=== PATIENT | female | born 1970 | race Caucasian/White ===

== ENCOUNTER 2020-04-04 07:10 | Day surgery (SDC) | payer BC ==
[2020-04-04] MEDS ORDERED: PROPOFOL INJ 200 MG/20 ML VIAL IV ONE (08:02)
--- NOTE | 2020-04-04 09:55 | Discharge Summary ---
Discharge Summary (SDC) - Discharge Final Diagnosis: Rectal bleeding, small internal hemorrhoids, no evidence of active bleeding at this time. Date of Surgery: 04/04/20 Discharge Date: 04/04/20 Condition: Stable Treatment or Instructions: Discharge home. Diet as tolerated. Activity: Nonstrenuous. Follow-up with [facility] in 7 to 10 days. Okay to shower. Referrals: OTTO ALVARADO NP [Primary Care Provider] - Discharge Diet: As Tolerated Respiratory Treatments at Home: Deep Breathing/Coughing, Incentive Spirometer Discharge Activity: Balance Activity w/Rest Home Care Assistance: None Needed Report the Following to Your Physician Immediately: Shortness of Breath, Nausea, Vomiting, Fever over 101 Degrees, Unusual Bleeding, Redness
--- NOTE | 2020-04-04 09:57 | Operative Report ---
Nonrecallable Operative Report DATE OF SURGERY: 04/04/20 PREOPERATIVE DIAGNOSIS: Rectal bleeding POSTOPERATIVE DIAGNOSIS: Small internal hemorrhoids, no active bleeding identified. OPERATION: Colonoscopy to the cecum SURGEON: MARIA A MAO ANESTHESIA: GA TISSUE REMOVED OR ALTERED: None COMPLICATIONS: None apparent ESTIMATED BLOOD LOSS: None PROCEDURE: Procedure detail: After informed consent was obtained, the patient was brought to the endoscopy suite and laid the left lateral decubitus position. The endoscope was inserted into the rectum. It was passed up the rectum, sigmoid colon, descending colon, across the transverse colon, down the ascending colon, and into the cecum. The ileocecal valve and appendiceal orifice were identified. The scope was then withdrawn, circumferentially noting the mucosa. The prep was good. The scope was withdrawn past the ascending colon, transverse colon, down the descending colon, sigmoid colon, and into the rectum. In the rectum a retroflexion maneuver was performed. There were small nonbleeding internal hemorrhoids identified. There were scars, where rubber banding had been previously performed. The scope was straightened, air was suctioned from the rectum, the scope was removed, and the procedure was concluded. Please note there were no masses, lesions, diverticula, areas of inflammation, or active bleeding within the colon. Condition: Stable.
[2020-04-04 10:18] VITALS: BP 119/67
== END 2020-04-04 10:21 | disposition home or self-care (01) ==
LOC: END 07:10
PROVIDERS: ATTEND Surgery
DX: K62.5 Hemorrhage of anus and rectum (principal); K64.8 Other hemorrhoids; Z86.010 Personal history of colon polyps; Z80.0 Family history of malignant neoplasm of digestive organs; Z87.891 Personal history of nicotine dependence
CPT/HCPCS: 45378; 00811; U0003; J2704; C9803; 811; 87635